=== PATIENT | male | born 2000 | race Caucasian/White ===

== ENCOUNTER 2023-11-05 22:28 | Emergency (ER) | payer OTHER | END 2023-11-06 00:08 | LOC: ERS 22:28 | DX: S13.4XXA Sprain of ligaments of cervical spine, initial encounter (principal); F17.290 Nicotine dependence, other tobacco product, uncomplicated; V89.2XXA Person injured in unspecified motor-vehicle accident, traffic, initial encounter | CPT/HCPCS: 99282 ==